=== PATIENT | female | born 1960 | race Caucasian/White ===

== ENCOUNTER → 2016-04-09 | Outpatient (CLI) | payer OTHER ==
[~2016-04-09] MED LIST: CALC600T7 PO; CIPR500T89 PO; FLAG250T PO; MIRA3350 PO; MULTCAP PO; MUSHROOM PO; OXYC30TA84 PO; [UNRECOGNIZED DRUG - OTHER] PO
--- NOTE | 2016-04-09 12:18 | REP ---
BILATERAL MAMMOGRAM: Bilateral mammography performed in the MLO and CC projections. Patient has bilateral breast implants. Bilateral implant displaced views are performed in addition to routine MLO and CC views. There is no evidence of extracapsular implant rupture. Fibroglandular pattern appears essentially unchanged. There is no evidence of new mass or architectural distortion. However, there appear to be clustered microcalcifications in the upper outer quadrant of the right breast. There are new calcifications in the upper outer quadrant of the left breast. Recommend magnification views to further evaluate. IMPRESSION: Bilateral clustered calcifications in the upper outer quadrant of each breast. Recommend bilateral magnification views to further evaluate. BI-RADS/ACR category 0 mammogram, incomplete. Additional imaging and/or prior images are needed before a final assessment can be assigned. This mammogram was interpreted with the aid of an FDA-approved computer-aided detection system. The patient states she/he had a clinical breast exam in 04/2016. The patient letter being requested is M0.
== END ==
LOC: M WHC 10:36
PROVIDERS: ATTEND Nurse Practitioner Women's Health
DX: R92.2 Inconclusive mammogram (principal)

== ENCOUNTER → 2016-04-09 | Outpatient (REF) | payer OTHER | LOC: M SFHCWAGY 10:57 | PROVIDERS: ATTEND Nurse Practitioner Women's Health | DX: Z12.4 Encounter for screening for malignant neoplasm of cervix (principal) ==

== ENCOUNTER → 2016-04-14 | Outpatient (CLI) | payer OTHER ==
--- NOTE | 2016-04-14 16:21 | REP ---
Digital diagnostic bilateral mammography with CAD: History: Screening mammography from 04/09/2016 BIRADS category 0 incomplete because of possible micro-calcific groupings in the upper outer quadrant each breast. Diagnostic imaging was recommended. Comparison is made with 11/24/2014 and 07/10/2014 prior mammography as well. Mammographic findings: Magnified focal spot compression CC, MLO and true MLO views of each breast were obtained with implant displaced technique. The breast parenchyma is again seen to be heterogeneously dense. There is a needle biopsy marker clip in the subareolar region on the right as before. The right breast views confirm the presence of a heterogeneous grouping of polymorphic microcalcifications in the anterior and middle third of the right breast which is felt to be suspicious. These span an area measuring approximately 9 mm. Histologic sampling is recommended. Left breast views confirm the presence of somewhat more coarse but heterogeneous polymorphic grouping of calcifications in the upper outer quadrant of the left breast. These span area of 4-5 mm in greatest diameter. No mass effect is seen. No spiculation is noted on either side. Impression: BIRADS category four suspicious bilateral breast imaging. There is a micro-calcific cluster in the upper outer quadrant of each breast which merits stereotactic needle biopsy. This mammogram was interpreted with the aid of an FDA-approved computer-aided detection system. The patient states she/he had a clinical breast exam in April 2016 The patient letter being requested is M4 dense. Signed by Pal Eric MD 04/14/2016 04:35 P
== END ==
LOC: M RAD 15:12
PROVIDERS: ATTEND Nurse Practitioner Women's Health
DX: R92.0 Mammographic microcalcification found on diagnostic imaging of breast (principal)

== ENCOUNTER → 2016-05-12 | Outpatient (CLI) | payer OTHER ==
[~2016-05-12] MED LIST changes: +LIDOCAINE 1% MDV 20ML VIAL As Ordered ONE
--- NOTE | 2016-05-14 09:27 | REP ---
Digital diagnostic bilateral mammography: History: The patient was referred for stereotactic needle biopsy bilaterally because of groupings of microcalcifications identified on mammography in each breast, one on each side. Procedure: The patient was interviewed and informed consent was obtained. In the mammography suite, first the left and then the right breast were addressed. Unfortunately, the patient's compressed breast thickness was not sufficient to allow for the throw of the needle in any projection of either microcalcific cluster. The craniocaudal and lateromedial projections were attempted for both targets and each time, there was insufficient room to deployed the biopsy needle device. Accordingly, the stereotactic needle biopsy could not be accomplished on either side. Consider needle localization directed excisional biopsy. Impression: Failed attempt at stereotactic needle biopsy due to insufficient compressed breast parenchymal thickness to allow for the throw of the needle. Consider needle localization directed excisional biopsy for these microcalcific targets. Signed by Pal Eric MD 05/14/2016 03:00 P
== END ==
LOC: M RADPRO 09:56
PROVIDERS: ATTEND Surgery
DX: R92.0 Mammographic microcalcification found on diagnostic imaging of breast (principal)
CPT/HCPCS: 19081; 19082; G0204

== ENCOUNTER → 2016-05-27 | Day surgery (SDC) | payer OTHER ==
[~2016-05-27] VITALS: Ht 154.9 cm; Wt 58.5 kg
[~2016-05-27] MED LIST changes: +BUPIVACAINE/EPIN 0.25% 30 ML VIAL As Ordered ONE; +BUPIVACAINE/EPIN 0.25% 30 ML VIAL XX ONE; +ESMOLOL INJ 100MG/10ML VIAL As Ordered ONE; +GLYCOPYRROLATE INJ 0.2 MG/ML 2 ML VIAL As Ordered ONE; +KETOROLAC 60 MG/2 ML VIAL (J1885) As Ordered ONE; +LIDOCAINE 1% SDV INJ 30 ML VIAL As Ordered ONE; +LIDOCAINE 1% SDV INJ 30 ML VIAL XX ONE; +LIDOCAINE 2% INJ 100 MG/5 ML SDV (FOR ANES.) As Ordered ONE; +LR 1,000 ML IV SCH; +LevoFLOXacin IV 500 MG in APPROPRIATE DILUENT 1 EA IV ONE; +LevoFLOXacin(LEVAQUIN)500 MG/100 ML BAG (J1956) As Ordered ONE; +MIDAZOLAM INJ 2 MG/2 ML VIAL (J2250) As Ordered ONE; +MORPHINE 2 MG/ML 1ML SYRINGE IV PRN; +NEOSTIGMINE 1MG/ML 5 ML SYRINGE (J2710) As Ordered ONE; +NORCO, ANEXSIA 5/325MG TABLET (HYDROcodone/ACETAMINOPHEN) PO PRN; +ONDANSETRON 4MG/2ML VIAL (J2405) As Ordered ONE; +ONDANSETRON 4MG/2ML VIAL (J2405) IV PRN; +PHENYLephrine HCL 500 MCG/5 ML (100MCG/ML) SYRINGE (J2370) As Ordered ONE; +PROPOFOL 200 MG/20 ML VIAL As Ordered ONE; +RASP100C PO; +ROCURONIUM BROMIDE 50 MG/5 ML VIAL As Ordered ONE; +VITATAB11 PO; +dexameTHASONE 4 MG/ML 1ML VIAL (J1100) As Ordered ONE; +ePHEDrine SULFATE 25 MG/5 ML(5MG/ML) SYRINGE As Ordered ONE; +fentaNYL 100 MCG/2 ML INJECTION (J3010) IV PRN; +fentaNYL 250 MCG/5 ML INJECTION (J3010) As Ordered ONE
--- NOTE | 2016-05-27 13:41 | REP ---
SPECIMEN RADIOGRAPH RIGHT BREAST BIOPSY: 05/27/2016. Clinical history: Pleomorphic cluster of microcalcifications right breast. Findings: Single image from intraoperative excisional biopsy is reviewed. Hook wire is deployed. Anterior to the distal needle and cradled by the hook wire are the pleomorphic cluster of microcalcifications. Most if not all of them are included. This was reported by phone to the OR, Dr. Vitale acknowledged receiving this report. Signed by Socrates Sims MD 05/27/2016 05:44 P
--- NOTE | 2016-05-27 14:09 | REP ---
SPECIMEN RADIOGRAPH, LEFT BREAST EXCISIONAL BIOPSY: 05/27/2016 COMPARISON: Biopsy localization images this date. Two specimens are submitted for the left breast. The first is with the hookwire engaged. Initial image does not show any of the coarse calcifications or smaller pleomorphic calcifications of this collection on the mammogram. This was communicated to the surgeon in OR, and a second specimen submitted. That specimen shows a couple of tiny calcifications which I left arrows on the image but no other definite calcification. I would add that the specimen flores grid has multiple speckled densities superimposed on the tissue which could certainly obscure some calcifications. This also was communicated to the attending surgeon in the OR. Signed by Socrates Sims MD 05/27/2016 05:45 P
--- NOTE | 2016-05-27 14:48 | REP ---
BILATERAL BREAST LOCALIZATION: The procedure was performed under the direct supervision of Dr. Sims. The patient has a history of microcalcific clusters in the upper outer quadrant of each breast seen on a previous mammogram dated 04/14/2016. The risks and benefits of the procedure were explained to the patient, and informed consent was obtained. The left breast was addressed first. A craniocaudal approach was utilized. The calcifications were localized using mammographic guidance. The skin was prepped and draped in a sterile fashion. 1% Xylocaine was used as a local anesthetic. A 5 cm [place] needle wire system was inserted. Followup mammographic images demonstrate good needle placement. The right breast was then addressed. A craniocaudal approach was utilized. The calcifications were localized using mammographic guidance. The skin was prepped and draped in a sterile fashion. 1% Xylocaine was used as a local anesthetic. A 3 cm [place] needle wire system was inserted. Followup mammographic images demonstrate good needle placement. The patient tolerated the procedure well, and there were no immediate complications. Reviewed by LANDEN Villalpando 05/27/2016 04:35 PEdited and Signed by Socrates Sims MD 05/27/2016 05:26 P
[2016-05-27 15:00] VITALS: BP 130/78
--- NOTE | 2016-05-27 15:02 | RO ---
DATE OF PROCEDURE: 05/27/2016 PREPROCEDURE DIAGNOSIS: Bilateral abnormal breast microcalcifications. POSTPROCEDURE DIAGNOSIS: Bilateral abnormal breast microcalcifications. PROCEDURE: Bilateral needle localization (right and left breast). SURGEON: David Vitale MD SILK SCREEN PROCESSOR: Dr. Gillette (provided exposure, retraction, and necessary for adequate removal of the breast tissue). ANESTHESIA: General endotracheal anesthesia. ESTIMATED BLOOD LOSS: Minimal. FLUIDS: Crystalloid. DESCRIPTION OF PROCEDURE: The patient was brought to the operating room and was given general anesthesia. After receiving general anesthesia and preoperative antibiotics, the patient was prepped and draped in the usual sterile fashion. A curvilinear incision was made on the left breast overlying the anticipated area where the needle was aiming. It was angled from cranial to caudad and the target specimen was distally. This was a relatively small target specimen and thus a smaller incision was made curvilinear on the side with skin knife. Electrocautery was used to cut through dermis, underlying subcutaneous tissue and dissection up towards the needle was performed. was placed around the needle itself and taking care to make sure that the wire did not. The wire was held with curved and the needle was removed. Then once the wire was delivered into the incision, Allis clamps were placed on both sides of this wire and dissection continued in a circumferential manner, taking out a core of this tissue. Eventually this tissue was taken down, but there is very dense breast tissue as encountered towards the nipple-areolar complex. Eventually, this area was transected and a specimen was sent. The specimen was sent and the specimen mammogram revealed that possibly a portion of this was removed and thus the recommendation was that the lesion was anterior to the needle itself. Thus, an additional amount of breast tissue was removed in this area after I was able to palpate a very tiny nodule in the base of the dissection that I had performed. Allis clamps were placed on both sides of this and a portion of the specimen was resected. The posterior dissection was essentially on the muscle. Thus, the breast tissue itself was removed in this area using electrocautery. The specimen was sent as well and there is some question whether this contained the entire specimen or a portion of it given the density of the breast itself. The area was copiously irrigated until clear. #3-0 Vicryl was used close the dermis, #4-0 Vicryl was used to approximate the skin. This was repeated on the right-hand side. On the right-hand side, an incision was made with skin knife. Electrocautery was used to cut through dermis, underlying subcutaneous tissue taking out a core of tissue all the way down to the area that include the needle and the wire. Allis clamps had been placed on this medially and laterally and taken care to not touch the needle during this specimen or even see this needle during the specimen. The very tip of the wire was visualized at the of the removal but otherwise I felt that the specimen was a good specimen and this was removed in its entirety and the area was copiously irrigated until clear. #3-0 Vicryl was used to approximate the dermis, #4-0 Vicryl was used to approximate the skin. Steri-Strips and dry sterile dressing was applied. The patient was awakened from anesthesia, extubated and brought to recovery room awake, alert, hemodynamically stable. Sponge and needle counts correct times two.
== END | disposition home or self-care (01) ==
LOC: M SDC 09:07
PROVIDERS: ATTEND Surgery
DX: D24.2 Benign neoplasm of left breast (principal); N60.82 Other benign mammary dysplasias of left breast; Z87.891 Personal history of nicotine dependence; Z88.0 Allergy status to penicillin; Z88.2 Allergy status to sulfonamides; Z88.8 Allergy status to other drugs, medicaments and biological substances; Z91.013 Allergy to seafood
CPT/HCPCS: 19125; 72265; 76098; 88305; J1100; J1885; J1956; J2250; J2370; J2405; J2710; J3010

== ENCOUNTER → 2016-11-01 | Outpatient (REF) | payer OTHER ==
[~2016-11-01] MED LIST changes: -BUPIVACAINE/EPIN 0.25% 30 ML VIAL As Ordered ONE; -BUPIVACAINE/EPIN 0.25% 30 ML VIAL XX ONE; +CIPR-249 PO; -CIPR500T89 PO; -ESMOLOL INJ 100MG/10ML VIAL As Ordered ONE; -GLYCOPYRROLATE INJ 0.2 MG/ML 2 ML VIAL As Ordered ONE; -KETOROLAC 60 MG/2 ML VIAL (J1885) As Ordered ONE; -LIDOCAINE 1% MDV 20ML VIAL As Ordered ONE; -LIDOCAINE 1% SDV INJ 30 ML VIAL As Ordered ONE; -LIDOCAINE 1% SDV INJ 30 ML VIAL XX ONE; -LIDOCAINE 2% INJ 100 MG/5 ML SDV (FOR ANES.) As Ordered ONE; -LR 1,000 ML IV SCH; -LevoFLOXacin IV 500 MG in APPROPRIATE DILUENT 1 EA IV ONE; -LevoFLOXacin(LEVAQUIN)500 MG/100 ML BAG (J1956) As Ordered ONE; -MIDAZOLAM INJ 2 MG/2 ML VIAL (J2250) As Ordered ONE; -MORPHINE 2 MG/ML 1ML SYRINGE IV PRN; -NEOSTIGMINE 1MG/ML 5 ML SYRINGE (J2710) As Ordered ONE; -NORCO, ANEXSIA 5/325MG TABLET (HYDROcodone/ACETAMINOPHEN) PO PRN; -ONDANSETRON 4MG/2ML VIAL (J2405) As Ordered ONE; -ONDANSETRON 4MG/2ML VIAL (J2405) IV PRN; -PHENYLephrine HCL 500 MCG/5 ML (100MCG/ML) SYRINGE (J2370) As Ordered ONE; -PROPOFOL 200 MG/20 ML VIAL As Ordered ONE; -ROCURONIUM BROMIDE 50 MG/5 ML VIAL As Ordered ONE; -dexameTHASONE 4 MG/ML 1ML VIAL (J1100) As Ordered ONE; -ePHEDrine SULFATE 25 MG/5 ML(5MG/ML) SYRINGE As Ordered ONE; -fentaNYL 100 MCG/2 ML INJECTION (J3010) IV PRN; -fentaNYL 250 MCG/5 ML INJECTION (J3010) As Ordered ONE
[2016-11-01 22:40] LABS: MICROSCOPIC INDICATED? NO (NO)
== END ==
LOC: M LAB REF 13:58
PROVIDERS: ATTEND Physician Assistant Medical
DX: R30.0 Dysuria (principal)

== ENCOUNTER → 2017-05-21 | Outpatient (CLI) | payer OTHER | LOC: M WHC 10:37 | DX: Z12.31 Encounter for screening mammogram for malignant neoplasm of breast (principal); Z78.0 Asymptomatic menopausal state; Z85.3 Personal history of malignant neoplasm of breast; Z98.82 Breast implant status | CPT/HCPCS: 77067 ==

== ENCOUNTER → 2017-05-21 | Outpatient (REF) | payer OTHER | LOC: M SFHCWAGY 11:08 | DX: Z12.4 Encounter for screening for malignant neoplasm of cervix (principal); N88.8 Other specified noninflammatory disorders of cervix uteri | CPT/HCPCS: G0123 ==

== ENCOUNTER → 2017-06-18 | Outpatient (REF) | payer OTHER | LOC: M LAB REF 13:41 | DX: C50.919 Malignant neoplasm of unspecified site of unspecified female breast (principal) ==

== ENCOUNTER → 2018-01-29 | Outpatient (CLI) | payer OTHER ==
[~2018-01-29] MED LIST changes: -CALC600T7 PO; -CIPR-249 PO; -FLAG250T PO; -MIRA3350 PO; -MULTCAP PO; -MUSHROOM PO; -OXYC30TA84 PO; +PROHANCE 279.3MG/ML 15ML VIAL (A9576) As Ordered; -RASP100C PO; -VITATAB11 PO; -[UNRECOGNIZED DRUG - OTHER] PO
== END ==
LOC: M RAD 12:43
DX: N60.92 Unspecified benign mammary dysplasia of left breast (principal); N60.91 Unspecified benign mammary dysplasia of right breast; Z98.82 Breast implant status
CPT/HCPCS: A9576

== ENCOUNTER → 2018-05-21 | Outpatient (CLI) | payer OTHER ==
[~2018-05-21] MED LIST changes: +B-COTAB10 PO; +CALC600T7 PO; +CIPR-249 PO; +FLAG250T PO; +MIRA3350 PO; +MULTCAP PO; +MUSHROOM PO; +OXYC30TA84 PO; -PROHANCE 279.3MG/ML 15ML VIAL (A9576) As Ordered; +RALO1TAB PO; +RASP100C PO; +VITATAB11 PO; +[UNRECOGNIZED DRUG - OTHER] PO
--- NOTE | 2018-05-21 13:43 | REPMRS ---
Patient History The patient states she had a clinical breast exam in 05/25 Patient is postmenopausal, has history of high-risk lesion on a previous biopsy at age 55, and has history of hyperplasia atypia at age 55. No known family history of cancer. High risk radio exam breast specimen, May 27, 2016. High risk radio exam breast specimen, May 27, 2016. High risk localization of breast nodule of both breasts, May 27, 2016. Benign stereotactic core biopsy of the right breast, November 2013. Retro-pectoral implants in both breasts. Taking raloxifene for 3 months. 3D TOMOSYNTHESIS WAS PERFORMED. Digital Woman Screen Mammo: May 21, 2018 - Exam #: [id number] Bilateral CC and MLO view(s) were taken. Technologist: Arely Back, Technologist Prior study comparison: May 21, 2017, digital woman screen mammo performed at [facility]. May 12, 2016, digital mammo diagnostic bilateral, performed at [facility]. FINDINGS: The breast tissue is heterogeneously dense. This may lower the sensitivity of mammography. There has been no change in the appearance of the mammogram from the prior studies. There is a moderate amount of residual fibroglandular tissue which is fairly symmetric. There is no interval development of dominant mass, areas of architectural distortion, or clustered microcalcification typical of malignancy. Assessment: BI-RADS/ACR category 1 mammogram. Negative Mammogram. Recommendation Routine screening mammogram in 1 year (for women over age 40). This mammogram was interpreted with the aid of an FDA-approved computer-aided dectection system. Electronically Signed By: Dangelo Elaine MD 05/21/18 0240
== END ==
LOC: M WHC 10:42
PROVIDERS: ATTEND Nurse Practitioner Women's Health
DX: Z12.31 Encounter for screening mammogram for malignant neoplasm of breast (principal); Z78.0 Asymptomatic menopausal state; N60.92 Unspecified benign mammary dysplasia of left breast; N60.91 Unspecified benign mammary dysplasia of right breast; Z79.810 Long term (current) use of selective estrogen receptor modulators (SERMs); Z98.82 Breast implant status

== ENCOUNTER → 2018-06-07 | Outpatient (CLI) | payer OTHER ==
--- NOTE | 2018-06-07 18:52 | REP ---
Clinical: Contusion. Technique: [place] and bilateral lateral views. Findings: Subtle nondisplaced fracture at the tip of the nasal bone. No other fracture dislocation appreciated. Impression: Subtle nondisplaced fracture at the tip of the nasal bone. Electronically Signed by Garrick Meyer MD 06/07/2018 06:43 P
== END ==
LOC: M WUC 13:05
PROVIDERS: ATTEND Physician Assistant
DX: S02.2XXA Fracture of nasal bones, initial encounter for closed fracture (principal); X58.XXXA Exposure to other specified factors, initial encounter; Y92.9 Unspecified place or not applicable

== ENCOUNTER → 2018-11-18 | Outpatient (CLI) | payer OTHER ==
[~2018-11-18] MED LIST changes: +PROHANCE 279.3MG/ML 5ML VIAL (A9576) As Ordered ONE
--- NOTE | 2018-11-18 16:50 | REP ---
Bilateral breast MRI study without and with IV gadolinium: History: High risk patient breast cancer screening. 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 Breast implants status. Comparison screening mammography May 21, 2018. Comparison breast MRI study January 29, 2018. Technique:3 Asya MRI imaging was performed with a dedicated breast coil. Axial, coronal, and sagittal T1 and T2-weighted scans were obtained with and without fat saturation in the usual fashion. The study includes dynamically acquired post gadolinium enhanced imaging subtraction imaging. Maximal intensity projection and multiplanar re-formation imaging is included as well. The study was interpreted with the aid of [employer], an FDA approved computer-aided detection (CAD) software program, on a dedicated breast MRI work station. The gadolinium enhancement dose is 11 ml of intravenous ProHance. Findings: Bilateral retropectoral saline implants are again seen with intact margins. There is a moderate pattern of fibroglandular tissue bilaterally and symmetrically distributed. There is no evidence of significant breast cystic change. A magnetic field susceptibility artifact is seen in the lateral subareolar region on the right, unchanged. Dynamically acquired sequential post contrast images show no suspicious focus of enhancement and normal washout in either breast to suggest malignancy. No suspicious morphologic abnormality is noted on high-resolution imaging. Subtraction images are unremarkable. There is a mild pattern of background parenchymal enhancement. Impression: Stable BIRADS category 2 benign findings. Repeat screening breast MRI study recommended 1 year. Electronically Signed by Pal Eric MD 11/18/2018 05:41 P
== END ==
LOC: M RAD 12:46
PROVIDERS: ATTEND Nurse Practitioner Women's Health
DX: N60.92 Unspecified benign mammary dysplasia of left breast (principal); N60.91 Unspecified benign mammary dysplasia of right breast; Z98.82 Breast implant status
CPT/HCPCS: A9576; C8908

== ENCOUNTER → 2019-05-25 | Outpatient (CLI) | payer OTHER ==
[~2019-05-25] MED LIST changes: -PROHANCE 279.3MG/ML 5ML VIAL (A9576) As Ordered ONE
--- NOTE | 2019-05-25 13:11 | REPMRS ---
Patient History The patient states she had a clinical breast exam in 2019. No known family history of cancer. High risk radio exam breast specimen, May 27, 2016. High risk radio exam breast specimen, May 27, 2016. High risk localization of breast nodule of both breasts, May 27, 2016. Benign stereotactic core biopsy of the right breast, November 2013. Retro-pectoral implants in both breasts. Taking raloxifene for 3 months. Digital Woman Screen Mammo: May 25, 2019 - Exam #: [id number] Bilateral CC and MLO view(s) were taken. Technologist: Estelle Mccray, Technologist Prior study comparison: May 21, 2018, bilateral digital woman screen mammo performed at [facility]. May 21, 2017, digital woman screen mammo performed at [facility]. May 12, 2016, digital mammo diagnostic bilateral, performed at [facility]. FINDINGS: The breast tissue is heterogeneously dense. This may lower the sensitivity of mammography. There is a needle biopsy marker clip again noted in the subareolar region of the right breast unchanged. The visualized implant margins are smooth. Breast parenchymal density pattern is essentially symmetric. No dominant mass, grouped microcalcification, or architectural distortion is evident on either side. 3-D tomosynthesis shows no additional findings. No significant changes when compared with prior studies. Assessment: BI-RADS/ACR category 2 mammogram. Benign Findings. Recommendation Breast MRI of both breasts in 6 months. Routine screening mammogram of both breasts in 1 year (for women over age 40). This patient's Lifetime Breast Cancer RIsk is estimated at 34.1 %. Annual screening Breast MRI scanniing is recommended for patient's whose lifetime risk assessment is over 20%. This mammogram was interpreted with the aid of an FDA-approved computer-aided dectection system. Electronically Signed By: Davidson Eric MD 05/25/19 0759
== END ==
LOC: M WHC 10:55
PROVIDERS: ATTEND Nurse Practitioner Women's Health
DX: Z12.31 Encounter for screening mammogram for malignant neoplasm of breast (principal); Z12.4 Encounter for screening for malignant neoplasm of cervix; N88.8 Other specified noninflammatory disorders of cervix uteri
CPT/HCPCS: 77063; 77067; G0123

== ENCOUNTER → 2019-09-20 | Outpatient (REF) | payer OTHER, MEDICAID ==
[~2019-09-20] MED LIST changes: +OXYC30TA PO; -OXYC30TA84 PO
[2019-09-20 12:05] LABS: ALT/SGPT 26 U/L (12-78); BILIRUBIN,TOTAL 0.5 MG/DL (0.2-1.0); BLOOD UREA NITROGEN 23 MG/DL (7-18); CALCIUM LEVEL 9.1 MG/DL (8.8-10.2); CARBON DIOXIDE LEVEL 29 MEQ/L (21-32); CHLORIDE LEVEL 105 MEQ/L (98-107); CHOLESTEROL LEVEL 185 MG/DL (<200); CHOLESTEROL RISK RATIO 3.303 (<5); CREATININE FOR GFR 0.75 MG/DL (0.55-1.30); FREE T4 0.99 NG/DL (0.76-1.46); GLOMERULAR FILTRATION RATE > 60.0 (>45); GLUCOSE, FASTING 91 MG/DL (70-100); HDL CHOLESTEROL 56 MG/DL (>40); LDL CHOLESTEROL 118 MG/DL (<100); NON-HDL-C 129 MG/DL; POTASSIUM SERUM 4.2 MEQ/L (3.5-5.1); SODIUM LEVEL 139 MEQ/L (136-145); TRIGLYCERIDES LEVEL 53 MG/DL (<150)
== END ==
LOC: M SFHCPLAZ 08:07
PROVIDERS: ATTEND Physician Assistant
DX: Z00.00 Encounter for general adult medical examination without abnormal findings (principal); Z13.29 Encounter for screening for other suspected endocrine disorder; Z13.220 Encounter for screening for lipoid disorders

== ENCOUNTER → 2019-11-25 | Outpatient (CLI) | payer OTHER ==
[~2019-11-25] MED LIST changes: +CALC-212 PO; -CALC600T7 PO; +PROHANCE 279.3MG/ML 15ML VIAL As Ordered ONE
--- NOTE | 2019-12-29 08:44 | REP ---
BILATERAL BREAST MRI STUDY WITHOUT AND WITH INTRAVENOUS (IV) GADOLINIUM HISTORY: High risk breast cancer screening study. COMPARISONS: MRI study from 11/18/2018. Mammography 05/25/2019. Patients [facility] estimate of lifetime breast cancer risk is 34.1%. GADOLINIUM ENHANCEMENT DOSE: 11 mL of intravenous ProHance. MRI FINDINGS: Bilateral intact retropectoral saline implants are again noted. There is magnetic field susceptibility artifact in the subareolar zone of the right breast corresponding to needle biopsy marker clip. There is no evidence of axillary lymphadenopathy. There is a 13 mm oval T2 hyperintense area along the anterior margin of the left saline implant in the adjacent breast parenchyma. This is unchanged from the comparison study 11/18/2018, and consistent with a small cyst. No suspicious morphologic abnormality is seen on high-resolution T1 or T2-weighted pre- or postcontrast images in either breast. There are scattered micrometallic artifacts from previous surgery again noted. Dynamically acquired sequential postcontrast images show no suspicious focus of enhancement and/or washout in either breast to suggest malignancy. IMPRESSION: Stable BI-RADS Category 2 benign findings. No suspicious abnormality. Repeat screening exam recommended in one year. MTDD
== END ==
LOC: M RAD 12:19
PROVIDERS: ATTEND Internal Medicine Hematology & Oncology
DX: N60.81 Other benign mammary dysplasias of right breast (principal)
CPT/HCPCS: A9576; C8908

== ENCOUNTER → 2020-06-01 | Outpatient (CLI) | payer OTHER, MEDICAID ==
[~2020-06-01] MED LIST changes: -PROHANCE 279.3MG/ML 15ML VIAL As Ordered ONE
--- NOTE | 2020-06-01 13:12 | REPMRS ---
Patient History The patient states she had a clinical breast exam in May 2020. No known family history of cancer. High risk radio exam breast specimen, May 27, 2016. High risk radio exam breast specimen, May 27, 2016. High risk localization of breast nodule of both breasts, May 27, 2016. Benign stereotactic core biopsy of the right breast, November 2013. Retro-pectoral implants in both breasts. Taking raloxifene for 3 months. Digital Woman Screen Mammo: June 01, 2020 - Exam #: [id number] Bilateral CC and MLO view(s) were taken. Technologist: Shania Vazquez, Technologist Prior study comparison: May 25, 2019, bilateral digital woman screen mammo performed at [facility]. May 21, 2018, bilateral digital woman screen mammo performed at [facility]. November 01, 2013, digital woman screen mammo performed at [facility]. FINDINGS: The breast tissue is heterogeneously dense. This may lower the sensitivity of mammography. The visualized implant margins are smooth. The Volpara volumetric breast density category is: C. Breast parenchymal density pattern is essentially symmetric. No dominant mass, grouped microcalcification, or architectural distortion is evident on either side. There is a needle biopsy marker clip in the right breast. 3-D tomosynthesis shows no additional findings. No significant changes when compared with prior studies. Assessment: BI-RADS/ACR category 2 mammogram. Benign Findings. Recommendation Routine screening mammogram of both breasts in 1 year (for women over age 40). This patient's [facility] Lifetime Breast Cancer RIsk is estimated at 33.3 %. This mammogram was interpreted with the aid of an FDA-approved computer-aided dectection system. Electronically Signed By: Davidson Eric MD 06/01/20 1608
== END ==
LOC: M WHC 11:26
PROVIDERS: ATTEND Nurse Practitioner Women's Health
DX: R92.2 Inconclusive mammogram (principal); N60.91 Unspecified benign mammary dysplasia of right breast; N60.92 Unspecified benign mammary dysplasia of left breast; Z86.018 Personal history of other benign neoplasm; Z98.82 Breast implant status; Z97.8 Presence of other specified devices

== ENCOUNTER → 2020-06-01 | Outpatient (REF) | payer OTHER, MEDICAID | LOC: M SFHCWAGY 18:49 | PROVIDERS: ATTEND Nurse Practitioner Women's Health | DX: Z12.4 Encounter for screening for malignant neoplasm of cervix (principal) ==

== ENCOUNTER 2020-08-06 09:16 | Day surgery (SDC) | payer OTHER ==
[~2020-08-06] VITALS: Ht 154.9 cm; Wt 56.2 kg
[~2020-08-06 09:16] MED LIST changes: +NS 1,000 ML IV ONE
--- NOTE | 2020-08-06 11:13 | ROOR ---
Patient Name: Arely Veliz Procedure Date: 08/06/2020 10:48 AM Date of : 1960 Age: 60 Room: [facility] Gender: Female Note Status: Finalized Procedure: Colonoscopy Indications: Screening for colorectal malignant neoplasm Providers: Pete REYES MD Referring MD: Ayesha Manjarrez Requesting Provider: Medicines: Monitored Anesthesia Care Complications: No immediate complications. Procedure: Pre-Anesthesia Assessment: - The heart rate, respiratory rate, oxygen saturations, blood pressure, adequacy of pulmonary ventilation, and response to care were monitored throughout the procedure. The Colonoscope was introduced through the anus and advanced to the terminal ileum, with identification of the appendiceal orifice and IC valve. The colonoscopy was performed without difficulty. The patient tolerated the procedure well. The quality of the bowel preparation was fair. Findings: (EXAM: Complete, PREP: Fair/Adequate) Two sessile polyps were found in the ascending colon and cecum. The polyps were 3 to 4 mm in size. These polyps were removed with a cold snare. Resection and retrieval were complete. Small Internal Hemorrhoids. The exam was otherwise without abnormality on direct and retroflexion views. Impression: - Preparation of the colon was fair. - Two 3 to 4 mm polyps in the ascending colon and in the cecum, removed with a cold snare. Resected and retrieved. - Small Internal Hemorrhoids. - The examination was otherwise normal on direct and retroflexion views. Recommendation: - Repeat colonoscopy in 5 years for surveillance. Procedure Code(s): --- Professional --- 87323, Colonoscopy, flexible; with removal of tumor(s), polyp(s), or other lesion(s) by snare technique Diagnosis Code(s): --- Professional --- K63.5, Polyp of colon Z12.11, Encounter for screening for malignant neoplasm of colon CPT copyright 2019 [employer]. All rights reserved. The codes documented in this report are preliminary and upon sports journalist review may be revised to meet current compliance requirements. Pete Reyes MD Pete REYES MD 08/06/2020 11:13:05 AM Electronically signed by Pete REYES MD Number of Addenda: 0 Note Initiated On: 08/06/2020 10:48 AM Estimated Blood Loss: Estimated blood loss: none.
[2020-08-06] MEDS ORDERED: propofoL 200 MG/20 ML VIAL As Ordered ONE (11:28)
[2020-08-06] MEDS ORDERED: LIDOCAINE 2% 100MG/5ML SDV (FOR ANES.) As Ordered ONE (11:28)
[2020-08-06 11:39] VITALS: BP 138/71
== END 2020-08-06 11:40 | disposition home or self-care (01) ==
LOC: M OPP 09:16
PROVIDERS: ATTEND Internal Medicine Gastroenterology
DX: Z12.11 Encounter for screening for malignant neoplasm of colon (principal); K63.5 Polyp of colon; Z79.810 Long term (current) use of selective estrogen receptor modulators (SERMs); Z88.0 Allergy status to penicillin; Z88.1 Allergy status to other antibiotic agents; Z88.2 Allergy status to sulfonamides; Z88.5 Allergy status to narcotic agent; Z88.8 Allergy status to other drugs, medicaments and biological substances; Z91.013 Allergy to seafood; Z87.891 Personal history of nicotine dependence

== ENCOUNTER 2020-10-07 09:46 | Emergency (ER) | payer MEDICAID, OTHER ==
[~2020-10-07] VITALS: Ht 157.5 cm; Wt 55.3 kg
[~2020-10-07 09:46] MED LIST changes: -NS 1,000 ML IV ONE
[2020-10-07] MEDS ORDERED: CLEO300C2 PO (12:20)
[2020-10-07 12:29] VITALS: BP 166/77
[2020-10-11] MEDS ORDERED: RALO1TAB PO (15:06)
== END 2020-10-07 12:46 | disposition home or self-care (01) ==
LOC: M ED 09:46
DX: L03.213 Periorbital cellulitis (principal); G43.909 Migraine, unspecified, not intractable, without status migrainosus; Z98.82 Breast implant status; Z87.09 Personal history of other diseases of the respiratory system; Z88.0 Allergy status to penicillin; Z88.1 Allergy status to other antibiotic agents; Z88.2 Allergy status to sulfonamides; Z88.6 Allergy status to analgesic agent; Z91.013 Allergy to seafood; Z79.899 Other long term (current) drug therapy

== ENCOUNTER 2020-10-23 06:47 | Emergency (ER) | payer MEDICAID ==
[~2020-10-23] VITALS: Ht 154.9 cm; Wt 55.0 kg
[~2020-10-23 06:47] MED LIST changes: +CLEO300C2 PO
[2020-10-23 09:21] LABS: BASO % 0.8 % (0.0-1.0); EOS # 0.2 10^3/uL (0.0-0.5); EOS % 4.1 % (0.0-3.0); HEMATOCRIT 43.1 % (36.0-47.0); HEMOGLOBIN 14.4 g/dl (12.0-15.5); LYMPH # 1.5 10^3/uL (1.5-5.0); LYMPH % 29.2 % (24.0-44.0); MEAN CORPUSCULAR HEMOGLOBIN 31.1 pg (27.0-33.0); MEAN CORPUSCULAR HGB CONC 33.4 g/dl (32.0-36.5); MEAN CORPUSCULAR VOLUME 93.1 fl (80.0-96.0); MONO # 0.6 10^3/uL (0.0-0.8); NEUTROPHILS # 2.8 10^3/uL (1.5-8.5); NEUTROPHILS % 54.7 % (36.0-66.0); PLATELET COUNT, AUTOMATED 241 10^3/uL (150-450); RED BLOOD COUNT 4.63 10^6/uL (4.00-5.40); WHITE BLOOD COUNT 5.2 10^3/uL (4.0-10.0)
[2020-10-23 12:20] LABS: BASO % 0.8 % (0.0-1.0); EOS # 0.1 10^3/uL (0.0-0.5); EOS % 1.9 % (0.0-3.0); HEMATOCRIT 42.9 % (36.0-47.0); HEMOGLOBIN 14.2 g/dl (12.0-15.5); LYMPH # 1.5 10^3/uL (1.5-5.0); LYMPH % 28.5 % (24.0-44.0); MEAN CORPUSCULAR HEMOGLOBIN 30.5 pg (27.0-33.0); MEAN CORPUSCULAR HGB CONC 33.1 g/dl (32.0-36.5); MEAN CORPUSCULAR VOLUME 92.3 fl (80.0-96.0); MONO # 0.5 10^3/uL (0.0-0.8); MONO % 9.8 % (2.0-8.0); NEUTROPHILS # 3.1 10^3/uL (1.5-8.5); NEUTROPHILS % 58.8 % (36.0-66.0); PLATELET COUNT, AUTOMATED 255 10^3/uL (150-450); RED BLOOD COUNT 4.65 10^6/uL (4.00-5.40); WHITE BLOOD COUNT 5.3 10^3/uL (4.0-10.0)
--- NOTE | 2020-10-23 12:42 | REP ---
INDICATION: orbital swelling/periorbital cellulitis. COMPARISON: None. TECHNIQUE: CT BRAIN PERFORMED IN THE AXIAL PLANE. CORONAL RECONSTRUCTION IMAGES ARE PERFORMED. FINDINGS: THE VENTRICLES ARE NORMAL IN SIZE AND POSITION. THERE IS NO MIDLINE SHIFT OR MASS EFFECT. FLETCHER-WHITE DIFFERENTIATION IS WELL MAINTAINED. THERE IS NO ACUTE INTRACRANIAL HEMORRHAGE OR EXTRA-AXIAL FLUID COLLECTION. BONE WINDOW EXAMINATION IS UNREMARKABLE. VISUALIZED MASTOID AIR CELLS AND PARANASAL SINUSES ARE CLEAR. MINIMAL THICKENING OR EDEMA OF THE PERIORBITAL SOFT TISSUES NEAR THE MEDIAL CANTHUS ON EACH SIDE. NO POST SEPTAL EDEMA OR FLUID COLLECTION. GLOBES AND INTRAORBITAL CONTENTS SYMMETRIC AND NORMAL. IMPRESSION: NEGATIVE NONCONTRAST CT BRAIN. MINIMAL PERIORBITAL SWELLING, NO POSTSEPTAL INTRA ORBITAL ABNORMALITY. <Electronically signed by Socrates Sims > 10/23/20 [id number]
[2020-10-23 12:48] LABS: ERYTHROCYTE SEDIMENTATION RATE 5 mm/hr (0-30)
[2020-10-23 14:31] VITALS: BP 135/76
[2020-10-24 12:08] LABS: ANTINUCLEAR ANTIBODIES DIRECT Negative (Negative)
== END 2020-10-23 14:32 | disposition home or self-care (01) ==
LOC: M ED 06:47
DX: L03.213 Periorbital cellulitis (principal); H01.119 Allergic dermatitis of unspecified eye, unspecified eyelid; Z88.0 Allergy status to penicillin; Z88.1 Allergy status to other antibiotic agents; Z88.2 Allergy status to sulfonamides; Z88.6 Allergy status to analgesic agent; Z91.013 Allergy to seafood

== ENCOUNTER → 2020-11-02 | Outpatient (CLI) | payer MEDICAID ==
[2020-11-02 15:39] LABS: BASO % 0.5 % (0.0-1.0); EOS # 0.2 10^3/uL (0.0-0.5); EOS % 2.9 % (0.0-3.0); HEMATOCRIT 40.2 % (36.0-47.0); HEMOGLOBIN 13.1 g/dl (12.0-15.5); LYMPH # 1.8 10^3/uL (1.5-5.0); MEAN CORPUSCULAR HEMOGLOBIN 30.5 pg (27.0-33.0); MEAN CORPUSCULAR HGB CONC 32.6 g/dl (32.0-36.5); MEAN CORPUSCULAR VOLUME 93.7 fl (80.0-96.0); MONO # 0.6 10^3/uL (0.0-0.8); MONO % 8.8 % (2.0-8.0); NEUTROPHILS # 3.7 10^3/uL (1.5-8.5); NEUTROPHILS % 58.6 % (36.0-66.0); PLATELET COUNT, AUTOMATED 233 10^3/uL (150-450); RED BLOOD COUNT 4.29 10^6/uL (4.00-5.40); WHITE BLOOD COUNT 6.3 10^3/uL (4.0-10.0)
[2020-11-02 16:01] LABS: C REACTIVE PROTEIN QUANTITATIV < 0.30 MG/DL (0.00-0.30); COMPLEMENT C3 115 MG/DL (90-180); COMPLEMENT C4 28 MG/DL (10-40); RHEUMATOID FACTOR QUANT < 10.0 IU/ML (<15.0); THYROXINE (T4) 8.1 UG/DL (4.5-12.0)
[2020-11-02 16:03] LABS: THYROGLOBULIN ANTIBODY < 15.0 U/ML (<60.0); THYROID PEROXIDASE ANTIBODY < 28.0 U/ML (<60.0)
[2020-11-02 16:04] LABS: TOTAL T3 114.1 NG/DL (60.0-181.0)
[2020-11-02 20:28] LABS: ERYTHROCYTE SEDIMENTATION RATE 6 mm/hr (0-30)
== END ==
LOC: M LAB 14:17
PROVIDERS: ATTEND Allergy & Immunology Allergy
DX: T78.3XXA Angioneurotic edema, initial encounter (principal)

== ENCOUNTER → 2020-12-07 | Outpatient (CLI) | payer OTHER ==
[~2020-12-07] MED LIST changes: +PROHANCE 279.3MG/ML 15ML VIAL As Ordered ONE
--- NOTE | 2020-12-07 16:27 | REP ---
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 COMPARISON: Comparison mammography is from June 01, 2020. Comparison MRI study is dated November 25, 2019. TECHNIQUE: Three [facility] MRI imaging was performed with a dedicated breast coil. Axial, coronal, and sagittal T1 and T2 weighted scans were obtained with and without fat saturation in the usual fashion. The study includes dynamically acquired post gadolinium-enhanced imaging with image subtraction. Maximum intensity projection and multi planar reformation imaging is included as well. This study is interpreted with the aid of [employer], an FDA approved computer aided detection (CAD) software program, on a dedicated breast MRI workstation. The gadolinium enhancement dose is 11 mL of intravenous ProHance. FINDINGS: There is a mild to moderate amount of fibroglandular tissue bilaterally corresponding with the mammographic pattern. There is minimal background parenchymal enhancement. There is no evidence of axillary lymphadenopathy or significant breast cystic change. Bilateral subpectoral saline augmentation implants are again seen with intact margins. An oval-shaped cyst is seen anterior to the implant on the left unchanged from the comparison study. Micrometallic artifacts are again noted as before. High-resolution pre and post-contrast T1 and T2 weighted scans show no suspicious morphologic abnormality in either breast. Dynamically acquired sequential postcontrast images show no suspicious area of enhancement and washout kinetics in either breast to suggest malignancy. Subtraction images show no additional abnormality. IMPRESSION: BI-RADS category 2 benign stable bilateral breast MRI findings. <Electronically signed by Davidson Eric > 12/07/20 1621
== END ==
LOC: M RAD 13:33
PROVIDERS: ATTEND Nurse Practitioner Women's Health
DX: N60.91 Unspecified benign mammary dysplasia of right breast (principal); N60.92 Unspecified benign mammary dysplasia of left breast; R92.2 Inconclusive mammogram
CPT/HCPCS: 77049; A9576

== ENCOUNTER → 2021-06-25 | Outpatient (CLI) | payer OTHER ==
[~2021-06-25] MED LIST changes: +ALLE60TA69 PO; +CLAR5TAB11 PO; +EPIN0.3I11; +LEVOTAB10 PO; +OLOP2.5D3 OP; -PROHANCE 279.3MG/ML 15ML VIAL As Ordered ONE
== END ==
LOC: M WHC 13:28
PROVIDERS: ATTEND Internal Medicine Hematology & Oncology
DX: M85.851 Other specified disorders of bone density and structure, right thigh (principal); M85.852 Other specified disorders of bone density and structure, left thigh; Z78.0 Asymptomatic menopausal state

== ENCOUNTER → 2021-09-03 | Outpatient (CLI) | payer OTHER | LOC: M WHC 12:11 | PROVIDERS: ATTEND Physician Assistant | DX: N60.92 Unspecified benign mammary dysplasia of left breast (principal); N60.91 Unspecified benign mammary dysplasia of right breast | CPT/HCPCS: 77066; G0279 ==

== ENCOUNTER → 2021-11-06 | Outpatient (REF) | payer OTHER | LOC: M PLALAB 12:07 | PROVIDERS: ATTEND Nurse Practitioner Family | DX: Z12.4 Encounter for screening for malignant neoplasm of cervix (principal); N88.8 Other specified noninflammatory disorders of cervix uteri ==

== ENCOUNTER → 2022-01-07 | Outpatient (CLI) | payer OTHER | LOC: M PLALAB 09:42 | PROVIDERS: ATTEND Physician Assistant | DX: E55.9 Vitamin D deficiency, unspecified (principal) ==

== ENCOUNTER → 2022-01-09 | Outpatient (REF) | payer OTHER ==
[2022-01-09 10:47] LABS: BASO % 0.5 % (0.0-1.0); EOS # 0.2 10^3/uL (0.0-0.5); EOS % 3.8 % (0.0-3.0); HEMATOCRIT 42.4 % (36.0-47.0); HEMOGLOBIN 13.9 g/dl (12.0-15.5); LYMPH # 1.7 10^3/uL (1.5-5.0); LYMPH % 28.3 % (24.0-44.0); MEAN CORPUSCULAR HEMOGLOBIN 30.5 pg (27.0-33.0); MEAN CORPUSCULAR HGB CONC 32.8 g/dl (32.0-36.5); MONO # 0.6 10^3/uL (0.0-0.8); MONO % 10.1 % (2.0-8.0); NEUTROPHILS # 3.4 10^3/uL (1.5-8.5); NEUTROPHILS % 57.1 % (36.0-66.0); PLATELET COUNT, AUTOMATED 240 10^3/uL (150-450); RED BLOOD COUNT 4.56 10^6/uL (4.00-5.40); WHITE BLOOD COUNT 5.9 10^3/uL (4.0-10.0)
[2022-01-09 11:12] LABS: BLOOD UREA NITROGEN 16 MG/DL (7-18); CALCIUM LEVEL 9.4 MG/DL (8.8-10.2); CARBON DIOXIDE LEVEL 29 MEQ/L (21-32); CHLORIDE LEVEL 108 MEQ/L (98-107); CREATININE FOR GFR 0.73 MG/DL (0.55-1.30); FREE T4 0.97 NG/DL (0.76-1.46); GLOMERULAR FILTRATION RATE > 60.0 (>45); GLUCOSE, FASTING 103 MG/DL (70-100); POTASSIUM SERUM 3.9 MEQ/L (3.5-5.1); SODIUM LEVEL 140 MEQ/L (136-145)
[2022-01-09 11:46] LABS: HEMOGLOBIN A1c 5.7 %
== END ==
LOC: M PLALAB 10:06
PROVIDERS: ATTEND Physician Assistant
DX: R94.6 Abnormal results of thyroid function studies (principal); R73.01 Impaired fasting glucose

== ENCOUNTER → 2022-01-10 | Outpatient (CLI) | payer OTHER ==
[~2022-01-10] MED LIST changes: +PROHANCE 279.3MG/ML 15ML VIAL ONE
== END ==
LOC: M PLAIMG 10:26
PROVIDERS: ATTEND Surgery
DX: N60.91 Unspecified benign mammary dysplasia of right breast (principal)
CPT/HCPCS: 77049; A9576

== ENCOUNTER → 2022-09-04 | Outpatient (CLI) | payer OTHER ==
[~2022-09-04] MED LIST changes: -PROHANCE 279.3MG/ML 15ML VIAL ONE
== END ==
LOC: M WHC 10:29
PROVIDERS: ATTEND Surgery
DX: N60.91 Unspecified benign mammary dysplasia of right breast (principal)

== ENCOUNTER → 2022-11-12 | Outpatient (REF) | payer OTHER | LOC: M LAB REF 17:48 → M SFHCWAGY 17:48 | PROVIDERS: ATTEND Nurse Practitioner Family | DX: Z12.4 Encounter for screening for malignant neoplasm of cervix (principal) ==

== ENCOUNTER → 2022-11-12 | Outpatient (CLI) | payer OTHER | LOC: M WHC 11:02 | PROVIDERS: ATTEND Nurse Practitioner Family | DX: Z53.9 Procedure and treatment not carried out, unspecified reason (principal) ==

== ENCOUNTER → 2023-01-12 | Outpatient (CLI) | payer OTHER ==
[2023-01-12 16:37] LABS: BLOOD UREA NITROGEN 18 MG/DL (9-23); CALCIUM LEVEL 9.2 MG/DL (8.3-10.6); CARBON DIOXIDE LEVEL 33 MMOL/L (20-31); CHLORIDE LEVEL 106 MMOL/L (98-107); CREATININE FOR GFR 0.68 MG/DL (0.55-1.30); GLOMERULAR FILTRATION RATE > 60.0 (>45); GLUCOSE, FASTING 110 MG/DL (74-106); POTASSIUM SERUM 3.9 MMOL/L (3.5-5.1); SODIUM LEVEL 143 MMOL/L (136-145)
== END ==
LOC: M PLALAB 11:49
PROVIDERS: ATTEND Nurse Practitioner Women's Health
DX: N60.91 Unspecified benign mammary dysplasia of right breast (principal)

== ENCOUNTER → 2023-01-14 | Outpatient (CLI) | payer OTHER ==
[~2023-01-14] MED LIST changes: +PROHANCE 279.3MG/ML 15ML VIAL ONE; +PROHANCE 279.3MG/ML 5ML VIAL ONE
== END ==
LOC: M PLAIMG 10:07
PROVIDERS: ATTEND Nurse Practitioner Women's Health
DX: N60.91 Unspecified benign mammary dysplasia of right breast (principal); Z91.89 Other specified personal risk factors, not elsewhere classified
CPT/HCPCS: 77049; A9576

== ENCOUNTER → 2023-11-18 | Outpatient (REF) | payer OTHER, MEDICARE ==
[~2023-11-18] MED LIST changes: -PROHANCE 279.3MG/ML 15ML VIAL ONE; -PROHANCE 279.3MG/ML 5ML VIAL ONE
[2023-11-20 13:07] LABS: HPV APTIMA Not Detected (Not Detected)
== END ==
LOC: M SFHCWAGY 13:26
PROVIDERS: ATTEND Nurse Practitioner Family
DX: Z12.4 Encounter for screening for malignant neoplasm of cervix (principal)

== ENCOUNTER → 2023-11-18 | Outpatient (CLI) | payer MEDICARE | LOC: M WHC 09:57 | PROVIDERS: ATTEND Nurse Practitioner Family | DX: Z12.31 Encounter for screening mammogram for malignant neoplasm of breast (principal); Z13.820 Encounter for screening for osteoporosis; R92.323 Mammographic fibroglandular density, bilateral breasts; M85.851 Other specified disorders of bone density and structure, right thigh; M85.852 Other specified disorders of bone density and structure, left thigh ==

== ENCOUNTER → 2024-03-23 | Outpatient (CLI) | payer MEDICARE, OTHER | LOC: M PLALAB 11:33 | PROVIDERS: ATTEND Family Medicine | DX: N60.92 Unspecified benign mammary dysplasia of left breast (principal); N60.91 Unspecified benign mammary dysplasia of right breast; Z91.89 Other specified personal risk factors, not elsewhere classified ==

== ENCOUNTER → 2024-08-16 | Outpatient (CLI) | payer MEDICARE ==
[2024-08-16 14:08] LABS: HEMOGLOBIN A1c 5.6 % (4.0-6.0)
[2024-08-16 14:21] LABS: FREE T4 1.13 NG/DL (0.89-1.76); THYROID STIMULATING HORMONE 4.884 uIU/ML (0.55-4.78)
[2024-08-16 14:24] LABS: ALBUMIN 4.1 G/DL (3.2-5.2); BILIRUBIN,TOTAL 0.5 MG/DL (0.3-1.2); CALCIUM LEVEL 9.6 MG/DL (8.3-10.6); CHOLESTEROL RISK RATIO 3.07 (<5); CREATININE FOR GFR 0.95 MG/DL (0.55-1.30); GLOMERULAR FILTRATION RATE 66.1 (>45); POTASSIUM SERUM 4.2 MMOL/L (3.5-5.1); TOTAL PROTEIN 6.9 G/DL (5.7-8.2)
== END ==
LOC: M PLALAB 12:13
PROVIDERS: ATTEND Family Medicine
DX: Z00.00 Encounter for general adult medical examination without abnormal findings (principal); E03.8 Other specified hypothyroidism; R73.01 Impaired fasting glucose; E55.9 Vitamin D deficiency, unspecified

== ENCOUNTER → 2024-10-18 | Outpatient (CLI) | payer MEDICARE | LOC: M WUC 10:20 | PROVIDERS: ATTEND Nurse Practitioner Family | DX: R07.82 Intercostal pain (principal); W01.10XA Fall on same level from slipping, tripping and stumbling with subsequent striking against unspecified object, initial encounter ==

== ENCOUNTER → 2025-01-30 | Outpatient (CLI) | payer MEDICARE | LOC: M WUC 12:42 | PROVIDERS: ATTEND Physician Assistant | DX: M79.674 Pain in right toe(s) (principal); M19.071 Primary osteoarthritis, right ankle and foot ==

== ENCOUNTER → 2025-02-02 | Outpatient (CLI) | payer MEDICARE | LOC: M WHC 12:07 | PROVIDERS: ATTEND Family Medicine | DX: Z12.31 Encounter for screening mammogram for malignant neoplasm of breast (principal); R92.323 Mammographic fibroglandular density, bilateral breasts; Z98.82 Breast implant status ==